=== PATIENT | male | born 1965 | race Caucasian/White ===

== ENCOUNTER 2017-10-05 09:08 | Inpatient (IN) | payer BC ==
[~2017-10-05] VITALS: Ht 165.1 cm; Wt 82.6 kg
[2017-10-05] MEDS ORDERED: NACL 0.9% 1,000 ML IV ONE (09:11)
[2017-10-05] MEDS ORDERED: NACL 0.9% 1,000 ML IV SCH (09:11)
[2017-10-05 09:14] VITALS: BP_SYST 137
[2017-10-05] MEDS ORDERED: PANTOPRAZOLE SODIUM 40 MG/VIAL (PROTONIX) IVP ONE (09:15)
[2017-10-05 09:39] LABS: BASOPHILS # (AUTO) 0.1 K/uL (0.0-0.2); BASOPHILS % (AUTO) 0.4 % (0.0-2.0); EOSINOPHILS % (AUTO) 0.2 % (0.0-4.0); HEMATOCRIT 43.7 % (36-54); HEMOGLOBIN 15.3 g/dL (14.0-18.0); LYMPHOCYTES # (AUTO) 1.4 K/uL (1.0-5.5); LYMPHOCYTES % (AUTO) 10.3 % (20.5-51.5); MEAN CORPUSCULAR HEMOGLOBIN 33 pg (27-31); MEAN CORPUSCULAR HGB CONC 35 % (32-36); MEAN CORPUSCULAR VOLUME 94 fL (79.0-98.0); MONOCYTES # (AUTO) 0.5 K/uL (0.0-1.0); MONOCYTES % (AUTO) 3.5 % (1.7-9.3); NEUTROPHILS # (AUTO) 11.2 K/uL (1.8-7.7); NEUTROPHILS % (AUTO) 85.6 % (40.0-70.0); PLATELET COUNT (AUTO) 224 K/uL (130-430); RED BLOOD CELL COUNT(AUTO) 4.67 MIL/uL (4.2-6.2); RED CELL DISTRIBUTION WIDTH 12.5 % (9.0-15.0); WHITE BLOOD COUNT (AUTO) 13.2 K/uL (4.8-10.8)
[2017-10-05 09:49] LABS: CALCIUM 8.7 mg/dL (8.4-11.0); CREATININE 1.08 mg/dL (0.55-1.30); POTASSIUM 3.7 mmol/L (3.5-5.1)
[2017-10-05 09:51] LABS: PROTHROMBIN TIME 10.4 SECS (9.5-12.5)
[2017-10-05 09:53] LABS: ALBUMIN 3.7 g/dL (3.4-4.8); TOTAL BILIRUBIN 1.1 mg/dL (0.0-1.0)
[2017-10-05 09:54] LABS: BILIRUBIN,URINE 1+ (NEGATIVE); BLOOD, URINE NEGATIVE (NEGATIVE); CLARITY/URINE CLEAR (CLEAR); COLOR,URINE YELLOW (YELLOW); GLUCOSE,URINE NEGATIVE (NEGATIVE); KETONES,URINE NEGATIVE (NEGATIVE); LEUKOCYTE ESTERASE ,URINE NEGATIVE (NEGATIVE); NITRITE, URINE NEGATIVE (NEGATIVE); PROTEIN URINE NEGATIVE (NEGATIVE)
[2017-10-05] MEDS ORDERED: MORPHINE 4 MG/ML INJ. SYRINGE IVP ONE (10:00)
[2017-10-05] MEDS ORDERED: ONDANSETRON HCL 4 MG/2 ML VIAL IVP ONE (10:00)
[2017-10-05] MEDS ORDERED: NS 1000 ML IV.SOLN IV ONE (10:45)
[2017-10-05] MEDS ORDERED: metroNIDAZOLE 500 mg/NS 100 ML IV ONE ×2 (10:45→16:30)
[2017-10-05] MEDS ORDERED: PIPERACILLIN/TAZO 3.375 GM in NS 50 ML IV ONE (10:45)
[2017-10-05] MEDS ORDERED: PIPERACILLIN/TAZOBACTAM 3.375 GM/VIAL (ZOSYN) IV ONE (10:52)
[2017-10-05 11:26] LABS: PROTHROMBIN TIME 10.2 SECS (9.5-12.5)
[2017-10-05] MEDS ORDERED: INSULIN REGULAR, HUMAN 100 UNITS/ML, 10 ML VIAL (novoLIN R) SUBCUT PRN (11:45)
[2017-10-05] MEDS ORDERED: DEXTROSE 50% JECT 50 ML DISP.SYRIN IVP PRN (11:45)
[2017-10-05 12:03] VITALS: BP_SYST 144
[2017-10-05] MEDS: D5LR 1,000 ML IV SCH ×2 (13:30→20:05)
[2017-10-05] MEDS ORDERED: KETOROLAC TROMETHAMINE 15 MG VIAL IVP PRN (14:45)
[2017-10-05] MEDS ORDERED: ACETAMINOPHEN 325 MG TABLET PO PRN (14:45)
[2017-10-05 16:00] VITALS: BP_SYST 148
[2017-10-05] MEDS ORDERED: MORPHINE 4 MG/ML INJ. SYRINGE IVP PRN (17:00)
[2017-10-05] MEDS ORDERED: MORPHINE 4 MG/ML INJ. SYRINGE ONE (17:07)
[2017-10-05 20:00] VITALS: BP_SYST 126
[2017-10-05] MEDS: metroNIDAZOLE 500 mg/NS 100 ML IV SCH (23:02)
[2017-10-06 00:13] VITALS: BP_SYST 115
[2017-10-06] MEDS: D5LR 1,000 ML IV SCH ×2 (02:17→11:47)
[2017-10-06] MEDS: metroNIDAZOLE 500 mg/NS 100 ML IV SCH ×2 (06:00→17:29)
[2017-10-06 06:33] LABS: CALCIUM 8.3 mg/dL (8.4-11.0); CREATININE 0.98 mg/dL (0.55-1.30); POTASSIUM 3.7 mmol/L (3.5-5.1); TOTAL BILIRUBIN 1.3 mg/dL (0.0-1.0)
[2017-10-06 06:42] LABS: BASOPHILS % (AUTO) 0.2 % (0.0-2.0); EOSINOPHILS % (AUTO) 0.4 % (0.0-4.0); HEMATOCRIT 39.3 % (36-54); HEMOGLOBIN 13.4 g/dL (14.0-18.0); LYMPHOCYTES # (AUTO) 1.4 K/uL (1.0-5.5); LYMPHOCYTES % (AUTO) 12.8 % (20.5-51.5); MEAN CORPUSCULAR HEMOGLOBIN 33 pg (27-31); MEAN CORPUSCULAR HGB CONC 34 % (32-36); MEAN CORPUSCULAR VOLUME 95 fL (79.0-98.0); MONOCYTES % (AUTO) 8.8 % (1.7-9.3); NEUTROPHILS # (AUTO) 8.8 K/uL (1.8-7.7); NEUTROPHILS % (AUTO) 77.8 % (40.0-70.0); PLATELET COUNT (AUTO) 193 K/uL (130-430); RED BLOOD CELL COUNT(AUTO) 4.13 MIL/uL (4.2-6.2); RED CELL DISTRIBUTION WIDTH 12.2 % (9.0-15.0); WHITE BLOOD COUNT (AUTO) 11.2 K/uL (4.8-10.8)
[2017-10-06 08:00] VITALS: BP_SYST 97
[2017-10-06 18:00] VITALS: BP_SYST 120
[2017-10-06] MEDS ORDERED: LEVO500T20 PO (18:21)
[2017-10-06] MEDS ORDERED: L.RH1CAP PO (18:23)
[2017-10-06] MEDS ORDERED: METR500T PO (18:23)
[2017-10-06 18:24] VITALS: BP_SYST 120
== END 2017-10-06 19:38 | disposition home or self-care (01) | DRG 392 ==
LOC: SED 09:08 → SMU 11:43
PROVIDERS: ADMIT Internal Medicine; ATTEND Internal Medicine
DX: K57.80 Diverticulitis of intestine, part unspecified, with perforation and abscess without bleeding (principal); K80.20 Calculus of gallbladder without cholecystitis without obstruction; K59.09 Other constipation; D17.20 Benign lipomatous neoplasm of skin and subcutaneous tissue of unspecified limb; F17.290 Nicotine dependence, other tobacco product, uncomplicated
CPT/HCPCS: 36415; 71045; 80053; 81003; 82962; 83605; 83690-TC; 84484; 85025; 85610-TC; 85730-TC; 87040-TC; 93005; 96361; 96365; 96375; 99285; C9113; J1815; J1956; J2270; J2405; J2543; J3490; J7042; J7120

== ENCOUNTER 2020-06-18 00:46 | Inpatient (IN) | payer BC, SELFPAY ==
[~2020-06-18] VITALS: Ht 167.6 cm; Wt 93.9 kg
[~2020-06-18 00:46] MED LIST: L.RH1CAP PO; LEVO500T20 PO; METR500T PO
[2020-06-18 01:00] VITALS: BP_SYST 181
--- NOTE | 2020-06-18 01:00 | NUR ---
Placed in room 2 . Placed on library monitor, blood pressure machine and pulse oximeter. To gown for exam. Side rails up. Report given to EMMY GUTIERREZ.
--- NOTE | 2020-06-18 01:05 | NUR ---
Patient BIB by family from home. C/O LUQ abdominal pain x today. 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 Hx Diverticulitis
--- NOTE | 2020-06-18 01:15 | NUR ---
PIV inserted to right forearm. 20 gauge secured with tape. good blood return. flushes without difficulties. labs drawn and sent to lab for analysis.
--- NOTE | 2020-06-18 01:19 | NUR ---
ER at bedside examining patient.
[2020-06-18] MEDS ORDERED: ONDANSETRON HCL 4 MG/2 ML VIAL IVP ONE ×2 (01:30→03:45)
[2020-06-18] MEDS ORDERED: NACL 0.9% 1,000 ML IV ONE (01:30)
[2020-06-18] MEDS ORDERED: MORPHINE 4 MG/ML INJ. SYRINGE IVP ONE ×2 (01:30→03:45)
--- NOTE | 2020-06-18 01:43 | NUR ---
portable CXR at bedside.
[2020-06-18 01:50] LABS: BASOPHILS % (AUTO) 0.4 % (0.0-2.0); EOSINOPHILS # (AUTO) 0.1 K/uL (0.0-0.4); EOSINOPHILS % (AUTO) 0.7 % (0.0-4.0); HEMATOCRIT 46.9 % (36-54); HEMOGLOBIN 16.4 g/dL (14.0-18.0); LYMPHOCYTES # (AUTO) 1.9 K/uL (1.0-5.5); LYMPHOCYTES % (AUTO) 18.6 % (20.5-51.5); MEAN CORPUSCULAR HEMOGLOBIN 33 pg (27-31); MEAN CORPUSCULAR HGB CONC 35 % (32-36); MEAN CORPUSCULAR VOLUME 95 fL (79.0-98.0); MONOCYTES # (AUTO) 0.6 K/uL (0.0-1.0); NEUTROPHILS # (AUTO) 7.5 K/uL (1.8-7.7); NEUTROPHILS % (AUTO) 74.3 % (40.0-70.0); PLATELET COUNT (AUTO) 227 K/uL (130-430); RED BLOOD CELL COUNT(AUTO) 4.96 MIL/uL (4.2-6.2); RED CELL DISTRIBUTION WIDTH 13.3 % (9.0-15.0); WHITE BLOOD COUNT (AUTO) 10.1 K/uL (4.8-10.8)
[2020-06-18 02:07] LABS: ANION GAP 14 (5-15); CHLORIDE 102 mmol/L (98-107); GFR AFRICAN AMERICAN 101 mL/min (>90); GLUCOSE 149 mg/dL (70-99); POTASSIUM 3.5 mmol/L (3.5-5.1); SODIUM SERUM 143 mmol/L (136-145); UREA NITROGEN, BLOOD 24 mg/dL (8-21)
--- NOTE | 2020-06-18 02:14 | NUR ---
Patient signs consent for CT scan with contrast.
[2020-06-18 02:18] LABS: ALBUMIN 3.8 g/dL (3.4-4.8); LIPASE 121 U/L (73-393); TOTAL BILIRUBIN 0.5 mg/dL (0.0-1.0)
[2020-06-18 02:56] LABS: ALANINE AMINOTRANSFERASE 112 U/L (12-78); ASPARTATE AMINOTRANSFERASE 43 U/L (10-37)
--- NOTE | 2020-06-18 03:05 | NUR ---
Patient came back from CT scan.
--- NOTE | 2020-06-18 03:10 | NUR ---
Patient started abdominal pain, pain rate 8/10, Dr. Johnson notified.
[2020-06-18 03:22] LABS: BILIRUBIN,URINE NEGATIVE (NEGATIVE); BLOOD, URINE NEGATIVE (NEGATIVE); COLOR,URINE YELLOW (YELLOW); GLUCOSE,URINE NEGATIVE (NEGATIVE); KETONES,URINE NEGATIVE (NEGATIVE); LEUKOCYTE ESTERASE ,URINE NEGATIVE (NEGATIVE); NITRITE, URINE NEGATIVE (NEGATIVE); PH,URINE 8.5 (5.0-8.0); PROTEIN URINE NEGATIVE (NEGATIVE); UROBILINOGEN,URINE 0.2 (0.2-1.0)
[2020-06-18 03:25] LABS: CLARITY/URINE HAZY (CLEAR)
[2020-06-18] MEDS ORDERED: ONDANSETRON HCL 4 MG/2 ML VIAL ONE (03:41)
[2020-06-18] MEDS ORDERED: MORPHINE 4 MG/ML INJ. SYRINGE ONE (03:42)
--- NOTE | 2020-06-18 03:57 | NUR ---
Swabs COVID-19 and send to lab.
[2020-06-18] MEDS ORDERED: PIPERACILLIN/TAZO 3.375 GM in NS 50 ML IV ONE (04:30)
[2020-06-18] MEDS ORDERED: PANTOPRAZOLE SODIUM 40 MG/VIAL (PROTONIX) IVP ONE ×2 (04:30→10:15)
[2020-06-18] MEDS ORDERED: PIPERACILLIN/TAZOBACTAM 3.375 GM/VIAL (ZOSYN) IV ONE (04:47)
--- NOTE | 2020-06-18 04:58 | NUR ---
Patient called family to coal picker his wallet and money.
[2020-06-18] MEDS: D5/0.45 NS 1,000 ML IV SCH ×2 (05:06→15:53)
--- NOTE | 2020-06-18 05:47 | NUR ---
Patient states -started pain again, pain 11/11
[2020-06-18] MEDS ORDERED: fentaNYL CITRATE/PF 100 MCG/2 ML AMP IVP ONE (06:00)
--- NOTE | 2020-06-18 06:01 | NUR ---
Patient 's family (Son) at bedside, and took his belonging (Wallet, Money , Necklace and Rings)
[2020-06-18] MEDS ORDERED: fentaNYL CITRATE/PF 100 MCG/2 ML AMP ONE (06:05)
--- NOTE | 2020-06-18 06:08 | NUR ---
Patient will be admitted to care of Dr. Barba. Admitted to M/S unit. Will go to room 109C. Belongings list completed. Complete and up to date summary report printed. SBAR report to be given at bedside with opportunity for questions.
--- NOTE | 2020-06-18 06:22 | NUR ---
CONSULTATION PAGED REASON FOR CONSULTATION ABDOMINAL PAIN WAS CONSULT CALED?Y PERSON WHO WAS NOTIFIED:ANDREIA CONSULTING PHYSICIAN:GINA VILA (ROSY CADE RETINAL SURGEON) HEALTH LEAD SPECIALTY:GI HEALTH LEAD PHONE NUMBER:[phone] REQUESTING PHYSICIAN:DAVID KNOTT
[2020-06-18 08:55] VITALS: BP_SYST 142
--- NOTE | 2020-06-18 09:05 | NUR ---
PAGED PAGED DAVID KNOTT AT [phone] SPOKE WITH JOSE R.
--- NOTE | 2020-06-18 09:13 | NUR ---
HIGH ALERT NOTE: Called Dr. Barba back at [phone] identified within the medical roster to verify physician authenticity.
[2020-06-18] MEDS ORDERED: ONDANSETRON HCL 4 MG/2 ML VIAL IVP PRN (09:15)
[2020-06-18] MEDS ORDERED: MORPHINE 2 MG/ML INJ. SYRINGE IVP PRN (09:15)
[2020-06-18] MEDS ORDERED: LORazepam 2 MG/ML VIAL IVP PRN (10:00)
[2020-06-18] MEDS ORDERED: NALOXONE HCL 0.4 MG/ML AMP (NARCAN) IVP PRN (10:00)
[2020-06-18] MEDS ORDERED: MORPHINE 4 MG/ML INJ. SYRINGE IVP PRN (10:00)
[2020-06-18] MEDS ORDERED: LIDOCAINE VISCOUS 2%, 15 ML UDC MM PRN (10:15)
[2020-06-18] MEDS ORDERED: MAG-AL HYDROX/SIMETH 30 ML UDC PO PRN (10:15)
[2020-06-18] MEDS ORDERED: SIMETHICONE 80 MG TAB.CHEW PO ONE (10:15)
[2020-06-18 12:22] VITALS: BP_SYST 136
--- NOTE | 2020-06-18 12:56 | NUR ---
PAGED DR. HERNANDEZ REGARDING PATIENTS RESULTS OF CT PER HIS REQUEST. ABX OK THAT HAVE ALREADY BEEN STARTED AND HIDA SCAN IN FOR AROUND 2PM TODAY.
--- NOTE | 2020-06-18 13:34 | NUR ---
CONSULTATION PAGED/CALLED Reason for Consultation: GALLSTONES Person Who was Notified: LITZY Consulting Physician: DR IBRAHIM Process Checker Specialty: GI Ordering Physician: YOHAN
--- NOTE | 2020-06-18 13:51 | NUR ---
SPOKE TO DR. IBRAHIM AND INFORMED HIM OF THE PATIENTS TEST THAT WAS ORDERED AND THE RESULTS OF THE CT.
[2020-06-18] MEDS: metroNIDAZOLE 500 mg/NS 100 ML IV SCH ×2 (15:53→23:16)
[2020-06-18] MEDS: SIMETHICONE 80 MG TAB.CHEW PO SCH ×2 (16:03→20:37)
[2020-06-18 16:27] VITALS: BP_SYST 137
[2020-06-18 20:00] VITALS: BP_SYST 143
[2020-06-18] MEDS: CIPROFLOXACIN LACT 200 MG/D5W 100 ML IV SCH (20:37)
[2020-06-18] MEDS: MORPHINE 2 MG/ML INJ. SYRINGE IVP PRN (20:41)
[2020-06-19 00:30] VITALS: BP_SYST 118
[2020-06-19] MEDS: D5/0.45 NS 1,000 ML IV SCH ×2 (00:59→09:45)
[2020-06-19] MEDS: metroNIDAZOLE 500 mg/NS 100 ML IV SCH ×2 (05:36→13:28)
[2020-06-19] MEDS: MORPHINE 2 MG/ML INJ. SYRINGE IVP PRN (06:06)
[2020-06-19 06:18] LABS: BASOPHILS % (AUTO) 0.1 % (0.0-2.0); EOSINOPHILS % (AUTO) 0.4 % (0.0-4.0); HEMATOCRIT 44.7 % (36-54); HEMOGLOBIN 15.3 g/dL (14.0-18.0); LYMPHOCYTES # (AUTO) 1.3 K/uL (1.0-5.5); LYMPHOCYTES % (AUTO) 10.6 % (20.5-51.5); MEAN CORPUSCULAR HEMOGLOBIN 32 pg (27-31); MEAN CORPUSCULAR HGB CONC 34 % (32-36); MEAN CORPUSCULAR VOLUME 93 fL (79.0-98.0); MONOCYTES # (AUTO) 1.1 K/uL (0.0-1.0); MONOCYTES % (AUTO) 9.2 % (1.7-9.3); NEUTROPHILS # (AUTO) 9.8 K/uL (1.8-7.7); NEUTROPHILS % (AUTO) 79.7 % (40.0-70.0); PLATELET COUNT (AUTO) 204 K/uL (130-430); RED BLOOD CELL COUNT(AUTO) 4.81 MIL/uL (4.2-6.2); RED CELL DISTRIBUTION WIDTH 13.2 % (9.0-15.0); WHITE BLOOD COUNT (AUTO) 12.3 K/uL (4.8-10.8)
[2020-06-19 06:58] LABS: PROTHROMBIN TIME 10.1 SECS (9.5-12.5)
[2020-06-19 07:02] LABS: ERYTHROCYTE SEDIMENTATION RATE 7 MM/HR (0-15)
[2020-06-19 07:20] LABS: ALBUMIN 3.3 g/dL (3.4-4.8); CREATININE 0.88 mg/dL (0.55-1.30); POTASSIUM 3.7 mmol/L (3.5-5.1); TOTAL BILIRUBIN 1.5 mg/dL (0.0-1.0)
[2020-06-19 07:32] LABS: TOTAL IRON BIND. CAPACITY 291 ug/dL (250-450)
[2020-06-19 08:09] LABS: C-REACTIVE PROTEIN QUANT 11.5 mg/dL (0-0.5)
[2020-06-19] MEDS ORDERED: PANTOPRAZOLE SODIUM 40 MG/VIAL (PROTONIX) IVP SCH (09:00)
[2020-06-19 09:45] VITALS: BP_SYST 128
[2020-06-19] MEDS: SIMETHICONE 80 MG TAB.CHEW PO SCH ×2 (09:45→15:42)
[2020-06-19] MEDS: CIPROFLOXACIN LACT 200 MG/D5W 100 ML IV SCH (09:45)
[2020-06-19] MEDS ORDERED: ACETAMINOPHEN 325 MG TABLET PO PRN (10:15)
[2020-06-19 11:40] VITALS: BP_SYST 132
[2020-06-19 16:00] VITALS: BP_SYST 136
[2020-06-19] MEDS ORDERED: CIPR500T5 PO (18:31)
[2020-06-19] MEDS ORDERED: METR500T PO (18:31)
[2020-06-19 18:45] VITALS: BP_SYST 126
[2020-06-20 08:06] LABS: HEPATITIS A AB, IgM Negative (Negative); HEPATITIS B CORE AB, IgM Negative (Negative); HEPATITIS B SURFACE AG Negative (Negative)
== END 2020-06-19 19:45 | disposition home or self-care (01) | DRG 445 ==
LOC: SED 00:46 → SMU 04:24
PROVIDERS: ADMIT Preventive Medicine Preventive Medicine/Occupational Environmental Medicine; ATTEND Preventive Medicine Preventive Medicine/Occupational Environmental Medicine
DX: K80.20 Calculus of gallbladder without cholecystitis without obstruction (principal); K51.30 Ulcerative (chronic) rectosigmoiditis without complications; R74.01 Elevation of levels of liver transaminase levels; K57.30 Diverticulosis of large intestine without perforation or abscess without bleeding; D72.829 Elevated white blood cell count, unspecified; R73.9 Hyperglycemia, unspecified; E83.51 Hypocalcemia; E88.09 Other disorders of plasma-protein metabolism, not elsewhere classified; K76.0 Fatty (change of) liver, not elsewhere classified; E66.9 Obesity, unspecified; K29.70 Gastritis, unspecified, without bleeding; Z20.822 Contact with and (suspected) exposure to COVID-19; Z68.33 Body mass index [BMI] 33.0-33.9, adult
CPT/HCPCS: 36415; 71045; 71260-TC; 74181; 76376; 78226; 80053; 80074; 81003; 82103; 83516; 83540-TC; 83550-TC; 83605; 83690-TC; 84484; 85025; 85610-TC; 85651-TC; 85730-TC; 86038; 86140; 87040-TC; 93005; 96361; 96365; 96375; 96376; A9537; C9113; J0744; J2270; J2405; J2543; J3010; J3490; Q9967